=== PATIENT | female | born 1960 | race Hispanic/Latino ===

== ENCOUNTER 2018-10-27 17:13 | Inpatient (IN) | payer OTHER ==
[~2018-10-27] VITALS: Ht 160 cm; Wt 78.5 kg
[2018-10-27 18:28] LABS: CREATININE 0.8 mg/dL (0.5-1.5); POTASSIUM 4.2 mmol/L (3.5-5.1)
[2018-10-27 18:31] LABS: INR 1.25 (0.85-1.15); PARTIAL THROMBOPLASTIN TIME 28.3 SEC (26.3-35.5); PROTHROMBIN TIME 13.1 SEC (9.6-11.6)
[2018-10-27 18:33] LABS: ALBUMIN 2.8 g/dL (3.5-5.0); TOTAL PROTEIN, SERUM 7.2 g/dL (6.0-8.3)
[2018-10-27 19:03] LABS: HEMATOCRIT 33.1 % (36-48); LYMPHOCYTES % (AUTO) 7.2 % (21.0-51.0); MEAN CORPUSCULAR HEMOGLOBIN 33.8 pg (27.0-33.0); MEAN CORPUSCULAR HGB CONC 35.1 g/dL (32.0-36.0); MEAN CORPUSCULAR VOLUME 96.2 fL (79-99); MONOCYTES % (AUTO) 62.1 % (3.0-13.0); NEUTROPHILS % (AUTO) 30.7 % (40.0-77.0); PLATELET COUNT (AUTO) 40 K/uL (130-400); RED BLOOD CELL COUNT(AUTO) 3.44 MIL/uL (4.00-5.50); RED CELL DISTRIBUTION WIDTH 15.7 % (11.0-15.5)
[2018-10-27 20:13] LABS: PLATELET MORPHOLOGY COMMENT MARKED DECREASE
[2018-10-27] MEDS ORDERED: DEXTROSE 50%-WATER 50 ML DISP.SYRIN IV PRN (21:00)
[2018-10-27] MEDS ORDERED: GLUCAGON 1MG KIT 1 MG ML IM PRN (21:00)
[2018-10-27] MEDS ORDERED: ONDANSETRON HCL 4 MG/2 ML VIAL IV PRN (21:00)
[2018-10-27] MEDS ORDERED: IOHEXOL-350 75 ML VIAL IV ONE (21:14)
[2018-10-27 21:35] LABS: AMYLASE 43 U/L (25-115); LIPASE 185 U/L (114-286)
[2018-10-27 21:38] LABS: MAGNESIUM 1.8 mg/dL (1.80-2.40); PHOSPHORUS 2.9 mg/dL (2.5-4.9)
[2018-10-27 21:49] LABS: % IRON SATURATION 98.4 % (22-44)
[2018-10-27 21:55] LABS: HEMOGLOBIN A1C 9.5 % (4.0-6.0)
[2018-10-27 22:13] LABS: APPEARANCE,URINE Clear (CLEAR); BILIRUBIN,URINE Negative (NEGATIVE); COLOR,URINE Yellow (YELLOW); GLUCOSE, URINE (UA) >=1000 mg/dL (NEGATIVE); KETONES,URINE Trace mg/dL (NEGATIVE); LEUKOCYTE ESTERASE ,URINE Trace (NEGATIVE); NITRATE,URINE Negative (NEGATIVE); OCCULT BLOOD,URINE Negative (NEGATIVE); PROTEIN,URINE Negative (NEGATIVE)
[2018-10-27 22:20] LABS: AMPHET/METH SCREEN,URINE NEGATIVE (NEGATIVE); BARBITURATE SCREEN, URINE NEGATIVE (NEGATIVE); BENZODIAZEPINES SCREEN,URINE NEGATIVE (NEGATIVE); CANNABINOID SCREEN,URINE NEGATIVE (NEGATIVE); COCAINE SCREEN,URINE POSITIVE (NEGATIVE); OPIATE SCREEN,URINE NEGATIVE (NEGATIVE); PHENCYCLIDINE SCREEN,URINE NEGATIVE (NEGATIVE)
[2018-10-27] MEDS: SODIUM CHLORIDE 0.9% 1000ML 1,000 ML IV SCH (22:28)
[2018-10-27 22:30] VITALS: BP 105/64
[2018-10-27 22:39] LABS: BACTERIA,URINE Many /HPF (None Seen); RBC,URINE None Seen /HPF (0-1)
[2018-10-27] MEDS: INSULIN HUMULIN R 100 UNIT/ML 3ML SQ SCH (23:20)
[2018-10-27] MEDS ORDERED: PANTOPRAZOLE 40 MG/VIAL IVP SCH (23:45)
[2018-10-28 03:38] VITALS: BP 92/57
[2018-10-28 04:16] LABS: HEMATOCRIT 29.8 % (36-48); MEAN CORPUSCULAR HEMOGLOBIN 33.8 pg (27.0-33.0); MEAN CORPUSCULAR VOLUME 96.5 fL (79-99); PLATELET COUNT (AUTO) 46 K/uL (130-400); RED BLOOD CELL COUNT(AUTO) 3.08 MIL/uL (4.00-5.50); RED CELL DISTRIBUTION WIDTH 15.5 % (11.0-15.5); WHITE BLOOD COUNT (AUTO) 4.8 K/uL (4.8-10.8)
[2018-10-28 04:23] LABS: ALBUMIN 2.4 g/dL (3.5-5.0); BILIRUBIN,TOTAL 1.4 mg/dL (0.2-1.0); CREATININE 0.7 mg/dL (0.5-1.5); POTASSIUM 3.9 mmol/L (3.5-5.1); TOTAL PROTEIN, SERUM 6.3 g/dL (6.0-8.3)
[2018-10-28 05:30] LABS: BAND NEUTROPHILS % (MANUAL) 14 % (0-2); BASOPHILS % (MANUAL) 1 % (0-2); EOSINOPHILS % (MANUAL) 1 % (1-6); LYMPHOCYTES % (MANUAL) 22 % (22-44); MONOCYTES % (MANUAL) 5 % (2-9); SEGMENTED NEUTROPHILS % 57 % (40-70)
[2018-10-28 05:32] LABS: MAN.DIFF COMMENT-IMPRESSION MANUAL DIFFERENTIAL
[2018-10-28] MEDS: SODIUM CHLORIDE 0.9% 1000ML 1,000 ML IV SCH (06:21)
[2018-10-28] MEDS: INSULIN HUMULIN R 100 UNIT/ML 3ML SQ SCH ×4 (06:22→21:13)
[2018-10-28] MEDS ORDERED: POTASSIUM CHLORIDE 20MEQ/100ML 100 ML IV PRN (07:45)
[2018-10-28] MEDS ORDERED: POTASSIUM CHLORIDE 20 MEQ ERTAB PO PRN (07:45)
[2018-10-28] MEDS ORDERED: POTASSIUM CHLORIDE 10% ELIXIR 20 MEQ/15 ML UDCUP PO PRN (07:45)
[2018-10-28] MEDS ORDERED: LIDOCAINE HCL-MPF 1% 2ML VIAL IVP PRN (07:45)
[2018-10-28 08:00] VITALS: BP 86/51
[2018-10-28] MEDS ORDERED: PANTOPRAZOLE 40 MG/VIAL IVP SCH ×3 (09:00→21:00)
[2018-10-28 11:00] VITALS: BP 119/59
--- NOTE | 2018-10-28 11:53 | NUR ---
Nutrition Intervention: Nutrition consult due to trigger. Pt. admitted with Dx of Liver cirrhosis, Pancytopenia, Hematemesis. Pt. NPO. Labs reviewed(Alb 2.4, HgbA1c 9.5%). LBM: 10/26/18. SR-19, elastic. BMI: 30.6, obesity grade 1. Pt. educated on Low Sodium Diabetic diet and provided with education material. Pt. verbalized understanding. Recommendations: 1) When medically feasible, rec. advance diet as tolerated to 2gm Na 60gm CCD diet. 2) Low Sodium diabetic diet education given to patient. 3) Continue to monitor pt's nutritional status and diet advancement. 4) Consult RD as nutrition concerns arise. Addendum: 10/28/18 at [address] Amended: Links added.
[2018-10-28 16:00] VITALS: BP 110/62
[2018-10-28] MEDS ORDERED: LACTULOSE 20 GM/30 ML UDCUP PO STA (16:58)
[2018-10-28] MEDS ORDERED: LACTULOSE 20 GM/30 ML UDCUP PO PRN (17:00)
[2018-10-28] MEDS ORDERED: CEFTRIAXONE SODIUM 2 GM VIAL IVP SCH (17:30)
[2018-10-28] MEDS: CEFTRIAXONE SODIUM 1 GM IVP SCH (18:02)
--- NOTE | 2018-10-28 18:16 | NUR ---
ROMÁN Guillermo PATIENT LETHARGIC BUT APPROPRIATE, MONGOLIAN/PALAU[place] SPEAKING,LIVES [facility] Addendum: 10/28/18 at 1818 by ELIECER DUNCAN RN CM Amended: Links added.
[2018-10-28 20:00] VITALS: BP 116/75
[2018-10-28] MEDS: RIFAXIMIN 550 MG TABLET PO SCH (21:11)
[2018-10-28] MEDS: METOPROLOL TARTRATE 25 MG TAB PO SCH (21:11)
[2018-10-29] VITALS (28 sets, daily range): BP systolic 96–140; BP diastolic 51–80
[2018-10-29 04:27] LABS: HEMATOCRIT 29.3 % (36-48); MEAN CORPUSCULAR HEMOGLOBIN 34.1 pg (27.0-33.0); MEAN CORPUSCULAR HGB CONC 35.4 g/dL (32.0-36.0); MEAN CORPUSCULAR VOLUME 96.2 fL (79-99); NUCLEATED RED BLOOD CELLS 0.2 % (0.0-0.19); PLATELET COUNT (AUTO) 47 K/uL (130-400); RED BLOOD CELL COUNT(AUTO) 3.05 MIL/uL (4.00-5.50); WHITE BLOOD COUNT (AUTO) 4.6 K/uL (4.8-10.8)
[2018-10-29 04:28] LABS: ALBUMIN 2.5 g/dL (3.5-5.0); BILIRUBIN,DIRECT 0.4 mg/dL (0.0-0.3); BILIRUBIN,TOTAL 1.3 mg/dL (0.2-1.0); CREATININE 0.9 mg/dL (0.5-1.5); POTASSIUM 3.3 mmol/L (3.5-5.1); TOTAL PROTEIN, SERUM 6.4 g/dL (6.0-8.3)
[2018-10-29 04:42] LABS: INR 1.2 (0.85-1.15); PROTHROMBIN TIME 12.6 SEC (9.6-11.6)
[2018-10-29] MEDS: INSULIN HUMULIN R 100 UNIT/ML 3ML SQ SCH ×4 (06:02→21:56)
--- NOTE | 2018-10-29 08:00 | NUR ---
Taking lactulose Addendum: 10/29/18 at 1439 by AMANDA VILLAFUERTE RN RN Amended: Links added.
--- NOTE | 2018-10-29 08:00 | NUR ---
Slow to respond to questioning Addendum: 10/29/18 at 1439 by AMANDA VILLAFUERTE RN RN Amended: Links added.
--- NOTE | 2018-10-29 09:00 | NUR ---
Pt. taken for EGD, left in stable condition via hospital bed.
[2018-10-29] MEDS ORDERED: PROPOFOL 10 MG/ML 20ML VIAL IV ONE (09:48)
--- NOTE | 2018-10-29 11:00 | NUR ---
Pt back from EGD in stable condition, Grade 3 esphageal varices, banding done, denies any c/o. Awake clear liquid tray ordered.
[2018-10-29] MEDS ORDERED: PANTOPRAZOLE SODIUM 40 MG TABLET.DR PO SCH (12:00)
[2018-10-29] MEDS: RIFAXIMIN 550 MG TABLET PO SCH ×2 (12:00→22:00)
[2018-10-29] MEDS: METOPROLOL TARTRATE 25 MG TAB PO SCH ×2 (12:01→22:00)
[2018-10-29] MEDS: CEFTRIAXONE SODIUM 1 GM IVP SCH (16:53)
[2018-10-29] MEDS: LACTULOSE 20 GM/30 ML UDCUP PO SCH ×2 (16:53→21:59)
[2018-10-29] MEDS: PANTOPRAZOLE SODIUM 40 MG TABLET.DR PO SCH (21:59)
[2018-10-30] VITALS (7 sets, daily range): BP systolic 98–116; BP diastolic 58–77
[2018-10-30] MEDS: LACTULOSE 20 GM/30 ML UDCUP PO SCH ×6 (01:28→21:08)
[2018-10-30 05:28] LABS: HEMATOCRIT 30.4 % (36-48); MEAN CORPUSCULAR HEMOGLOBIN 34.2 pg (27.0-33.0); MEAN CORPUSCULAR HGB CONC 35.4 g/dL (32.0-36.0); MEAN CORPUSCULAR VOLUME 96.6 fL (79-99); NUCLEATED RED BLOOD CELLS 0.1 % (0.0-0.19); PLATELET COUNT (AUTO) 60 K/uL (130-400); RED BLOOD CELL COUNT(AUTO) 3.15 MIL/uL (4.00-5.50); WHITE BLOOD COUNT (AUTO) 5.3 K/uL (4.8-10.8)
[2018-10-30 05:33] LABS: ALBUMIN 2.8 g/dL (3.5-5.0); BILIRUBIN,DIRECT 0.4 mg/dL (0.0-0.3); BILIRUBIN,TOTAL 1.5 mg/dL (0.2-1.0); CREATININE 1.1 mg/dL (0.5-1.5); POTASSIUM 3.3 mmol/L (3.5-5.1); TOTAL PROTEIN, SERUM 6.9 g/dL (6.0-8.3)
[2018-10-30] MEDS: INSULIN HUMULIN R 100 UNIT/ML 3ML SQ SCH ×4 (06:31→20:50)
[2018-10-30] MEDS ORDERED: POTASSIUM CHLORIDE 10% ELIXIR 20 MEQ/15 ML UDCUP PO SCH ×2 (09:57→15:00)
[2018-10-30] MEDS: RIFAXIMIN 550 MG TABLET PO SCH ×2 (10:42→21:08)
[2018-10-30] MEDS: METOPROLOL TARTRATE 25 MG TAB PO SCH ×2 (10:43→21:09)
[2018-10-30] MEDS: PANTOPRAZOLE SODIUM 40 MG TABLET.DR PO SCH ×2 (10:43→21:08)
--- NOTE | 2018-10-30 16:13 | NUR ---
cm note spoke to pt regarding low income clinics in the area and also, provided list of RX assist programs $[address] [facility] and [facility] for meds needed. informed lactulose available at [facility] for $4. pt states she has already started to get enrolled at [facility], states will followup with Marva here in the hospital and with social security office to try and get approved for disability and medicaid. pt verbalizes understanding.
[2018-10-30] MEDS: CEFTRIAXONE SODIUM 1 GM IVP SCH (16:30)
[2018-10-31] MEDS: LACTULOSE 20 GM/30 ML UDCUP PO SCH ×3 (00:34→10:57)
[2018-10-31 04:20] VITALS: BP 95/55
[2018-10-31 05:13] LABS: HEMATOCRIT 30.6 % (36-48); MEAN CORPUSCULAR HEMOGLOBIN 34.3 pg (27.0-33.0); MEAN CORPUSCULAR HGB CONC 35.4 g/dL (32.0-36.0); MEAN CORPUSCULAR VOLUME 96.8 fL (79-99); PLATELET COUNT (AUTO) 56 K/uL (130-400); RED BLOOD CELL COUNT(AUTO) 3.16 MIL/uL (4.00-5.50); RED CELL DISTRIBUTION WIDTH 15.9 % (11.0-15.5); WHITE BLOOD COUNT (AUTO) 6.8 K/uL (4.8-10.8)
[2018-10-31 05:15] LABS: CREATININE 1.1 mg/dL (0.5-1.5); POTASSIUM 3.6 mmol/L (3.5-5.1)
[2018-10-31] MEDS: INSULIN HUMULIN R 100 UNIT/ML 3ML SQ SCH (06:13)
[2018-10-31 08:23] VITALS: BP 105/67
[2018-10-31] MEDS ORDERED: AMOXICILLIN/POTASSIUM CLAV 875-125 TABLET PO SCH (09:15)
[2018-10-31] MEDS ORDERED: METFORMIN HCL 500 MG TABLET PO SCH (10:00)
[2018-10-31] MEDS ORDERED: NITROFURANTOIN MONOHYD/M-CRYST 100 MG CAPSULE PO SCH ×2 (10:26→21:00)
[2018-10-31] MEDS ORDERED: LACT10SO9 PO (10:47)
[2018-10-31] MEDS ORDERED: NITR100C PO (10:47)
[2018-10-31] MEDS ORDERED: METF500S7 PO (10:53)
[2018-10-31] MEDS ORDERED: METO25 PO (10:53)
[2018-10-31] MEDS: PANTOPRAZOLE SODIUM 40 MG TABLET.DR PO SCH (10:57)
[2018-10-31] MEDS: RIFAXIMIN 550 MG TABLET PO SCH (10:57)
[2018-10-31] MEDS: METOPROLOL TARTRATE 25 MG TAB PO SCH (10:57)
[2018-10-31 11:53] VITALS: BP 108/67
--- NOTE | 2018-10-31 14:35 | NUR ---
WAS CALLED AND INFORMED OF DARREL JOSÉ MD AWARE AND WANTS TO SEE PATIENT IN OFFICE TOMORROW PER APPOINTMENT. HOSPITALIST AWARE. Addendum: 10/31/18 at 1440 by YING WAGNER RN RN Amended: Links added.
--- NOTE | 2018-10-31 16:28 | NUR ---
RD Follow-up Note Patient tolerating current Soft diet with no report of GI distress and PO intake at 100%. Patient LBM 3.. Patient monitored labs: GFR 55, Glu 162, Ca 8.1, Alb 2.8, NH3 66, T. Bili 1.58. RD to continue to monitor. Please notify RD as nutritional concerns arise. Thank you. Addendum: 10/31/18 at [address] Amended: Links added.
== END 2018-10-31 15:27 | disposition home or self-care (01) | DRG 432 ==
LOC: EDH 17:13 → EDHIP 17:14 → 4BH 22:06
PROVIDERS: ADMIT Internal Medicine; ATTEND Internal Medicine
PROC: 06L38CZ Occlusion of Esophageal Vein with Extraluminal Device, Via Natural or Artificial Opening Endoscopic (ICD-10-PCS; principal; 2018-10-29)
DX: K70.30 Alcoholic cirrhosis of liver without ascites (principal); I85.11 Secondary esophageal varices with bleeding; D61.818 Other pancytopenia; N39.0 Urinary tract infection, site not specified; K72.90 Hepatic failure, unspecified without coma; E11.65 Type 2 diabetes mellitus with hyperglycemia; F32.9 Major depressive disorder, single episode, unspecified; E03.9 Hypothyroidism, unspecified; I10 Essential (primary) hypertension; F14.90 Cocaine use, unspecified, uncomplicated; K31.89 Other diseases of stomach and duodenum; F10.10 Alcohol abuse, uncomplicated; F19.10 Other psychoactive substance abuse, uncomplicated; E87.6 Hypokalemia; K29.70 Gastritis, unspecified, without bleeding; B96.20 Unspecified Escherichia coli [E. coli] as the cause of diseases classified elsewhere; Z16.12 Extended spectrum beta lactamase (ESBL) resistance; Z91.19 Patient's noncompliance with other medical treatment and regimen; Z83.3 Family history of diabetes mellitus; Z80.9 Family history of malignant neoplasm, unspecified; Z82.49 Family history of ischemic heart disease and other diseases of the circulatory system
CPT/HCPCS: 36415; 43244; 74178; 80048; 80053; 80076; 80305; 81001; 82140; 82150; 82270; 82728; 82948; 83036; 83540; 83550; 83690; 83735; 84100; 85025; 85027; 85610; 85730; 87040; 87077; 87088; 87186; 93005; A4218; C9113; G0378; J0696; J1815; J2704; Q9967